=== PATIENT | male | born 1990 | race Caucasian/White ===

== ENCOUNTER 2017-05-11 21:01 | Emergency (ER) | payer MEDICAID ==
[~2017-05-11] VITALS: Ht 185.4 cm; Wt 136.9 kg
[~2017-05-11 21:01] MED LIST: AMOX/K CLAV875 M1 PO; AMOXICILLIN500 MG OR; AMOXICILLIN500 MG PO; AMOXICILLIN875 MG PO; BACTRIM DS1 TAB OR; BACTROBAN21 EX; BENZONATATE200 MG PO; BLEPH-1010 % OD; CIPROFLOXACN500 MG PO; CLARITIN10 MG PO; FLONASE NASAL50 MCG; FLUZONE SPLT1 M1 IM; KLONOPIN1 MG PO; LORAZEPAM0.5 MG PO; METRONIDAZOL500 MG PO; MUCINEX600 MG PO; NAPROSYN500 MG OR; NO HOME MEDS; PROAIR HFA IN; ULTRAM50 M1 PO; ZITHROMAX250 MG OR; ZOFRAN ODT4 MG PO; ZOFRAN ODT8 MG OR
[2017-05-11 21:33] LABS: HEMATOCRIT 43.8 % (39.0-50.0); HEMOGLOBIN 14.8 g/dl (14.0-18.0); IMMATURE GRANULOCYTES 0.3 % (0.0-1.0); MEAN CELL VOLUME 82.5 fL CALC (80.0-100.0); MEAN CORPUSCULAR HGB 27.9 pG CALC (26.0-32.0); MEAN CORPUSCULAR HGB CONC 33.8 g/L CALC (32.0-36.0); RED BLOOD COUNT 5.31 mill/uL (4.70-6.10); RED CELL DISTRI WIDTH 12.6 % (11.5-15.5)
[2017-05-11 21:57] LABS: ALBUMIN 4.9 g/dL (3.2-5.0); ALKALINE PHOSPHATASE 106 u/l (38-126); AMYLASE 126 u/l (30-110); ANION GAP 20 (6-22 (CALC)); BILIRUBIN, TOTAL 0.7 mg/dL (0.0-1.4); BUN 16 mg/dL (9-20); BUN/CREATININE RATIO 15 (12-20 (CALC)); CALCIUM 10.7 mg/dL (8.4-10.2); CARBON DIOXIDE 22 mmol/l (22-30); CHLORIDE 106 mmol/l (95-108); CREATININE 1.1 mg/dL (0.7-1.3); GFR > 60 ML/MIN (>=60 (CALC)); GFR FOR AFR.AMER. > 60 ML/MIN (>=60 (CALC)); GLUCOSE 106 mg/dL (75-110); LIPASE 66 u/l (23-300); POTASSIUM 4.3 mmol/l (3.5-5.1); SGOT/AST 36 u/l (17-59); SGPT/ALT 55 u/l (21-72); SODIUM 143 mmol/l (137-146); TOTAL PROTEIN 7.3 g/dL (6.3-8.2)
[2017-05-11 22:01] LABS: URINE BILIRUBIN - DIPSTICK NEGATIVE (NEGATIVE); URINE BLOOD DIPSTICK NEGATIVE (NEGATIVE); URINE CLARITY CLEAR; URINE COLOR DK. YELLOW; URINE GLUCOSE - DIPSTICK NEGATIVE (NEGATIVE); URINE KETONE NEGATIVE (NEGATIVE); URINE LEUK ESTERASE NEGATIVE (NEGATIVE); URINE NITRITE - DIPSTICK NEGATIVE (Negative); URINE PH 5.5 (4.5-8.0); URINE PROTEIN - DIPSTICK NEGATIVE (NEG-TRACE); URINE SPECIFIC GRAVITY 1.025
[2017-05-11] MEDS ORDERED: PREVACID30 M3 PO (22:39)
[2017-05-11] MEDS ORDERED: ZOFRAN4 MG PO (22:40)
[2017-05-11 22:53] VITALS: BP 127/74
== END 2017-05-11 22:54 | disposition home or self-care (01) | DRG 392 ==
LOC: ED 21:01
PROVIDERS: Emergency Medicine
DX: K29.70 Gastritis, unspecified, without bleeding (principal); R10.30 Lower abdominal pain, unspecified; R11.2 Nausea with vomiting, unspecified

== ENCOUNTER 2017-10-31 11:15 | Emergency (ER) | payer MEDICAID ==
[~2017-10-31] VITALS: Ht 185.4 cm; Wt 100.0 kg
[~2017-10-31 11:15] MED LIST changes: +PREVACID30 M3 PO; +ZOFRAN4 MG PO
[2017-10-31 11:49] LABS: HEMATOCRIT 44.3 % (39.0-50.0); HEMOGLOBIN 14.9 g/dl (14.0-18.0); IMMATURE GRANULOCYTES 0.6 % (0.0-5.0); MEAN CELL VOLUME 83.4 fL CALC (80.0-100.0); MEAN CORPUSCULAR HGB 28.1 pG CALC (26.0-32.0); MEAN CORPUSCULAR HGB CONC 33.6 g/L CALC (32.0-36.0); NEUT# 3.47 thou/uL (1.82-7.42); RED BLOOD COUNT 5.31 mill/uL (4.70-6.10); RED CELL DISTRI WIDTH 12.7 % (11.5-15.5)
[2017-10-31] MEDS ORDERED: PREDNISONE10 MG PO (11:59)
[2017-10-31 12:04] VITALS: BP 133/86
== END 2017-10-31 12:05 | disposition home or self-care (01) ==
LOC: ED 11:15
PROVIDERS: Family Medicine
DX: J98.01 Acute bronchospasm (principal); R06.02 Shortness of breath; R05 Cough

== ENCOUNTER 2018-10-23 20:44 | Emergency (ER) | payer SELFPAY ==
[~2018-10-23] VITALS: Ht 185.4 cm; Wt 109.1 kg
[~2018-10-23 20:44] MED LIST changes: +PREDNISONE10 MG PO
[2018-10-23] MEDS ORDERED: TRAMADOL HCL50 MG PO (21:02)
[2018-10-23] MEDS ORDERED: AMOXICILLIN500 MG PO (21:02)
[2018-10-23 21:14] VITALS: BP 135/75
== END 2018-10-23 21:14 | disposition home or self-care (01) | DRG 159 ==
LOC: ED 20:44
DX: K04.7 Periapical abscess without sinus (principal); K08.89 Other specified disorders of teeth and supporting structures

== ENCOUNTER 2019-01-07 06:10 | Emergency (ER) | payer SELFPAY ==
[~2019-01-07] VITALS: Ht 185.4 cm; Wt 114.8 kg
[~2019-01-07 06:10] MED LIST changes: +TRAMADOL HCL50 MG PO
[2019-01-07 06:47] VITALS: BP 134/84
[2019-01-07] MEDS ORDERED: AMOXICILLIN500 MG PO (06:50)
[2019-01-07] MEDS ORDERED: LORTAB 1010 MG PO (06:50)
== END 2019-01-07 06:59 | disposition home or self-care (01) | DRG 159 ==
LOC: ED 06:10
DX: K04.7 Periapical abscess without sinus (principal)

== ENCOUNTER 2019-02-04 10:27 | Emergency (ER) | payer MEDICAID ==
[~2019-02-04] VITALS: Ht 185.4 cm; Wt 113.0 kg
[~2019-02-04 10:27] MED LIST changes: +LORTAB 1010 MG PO
[2019-02-04] MEDS ORDERED: KEFLEX500 M1 PO (10:44)
[2019-02-04 11:09] VITALS: BP 138/62
== END 2019-02-04 11:14 | disposition home or self-care (01) | DRG 603 ==
LOC: ED 10:27
DX: L03.115 Cellulitis of right lower limb (principal); F41.9 Anxiety disorder, unspecified

== ENCOUNTER 2019-05-06 20:09 | Emergency (ER) | payer SELFPAY ==
[~2019-05-06 20:09] MED LIST changes: +KEFLEX500 M1 PO
[2019-05-06 20:20] VITALS: BP 139/84
[2019-05-06] MEDS ORDERED: ALLEGRA-D 2424 HOUR PO (20:31)
== END 2019-05-06 20:38 | disposition home or self-care (01) | DRG 156 ==
LOC: ED 20:09
DX: H69.82 Other specified disorders of Eustachian tube, left ear (principal)

== ENCOUNTER 2020-03-24 21:09 | Emergency (ER) | payer MEDICAID ==
[~2020-03-24] VITALS: Ht 185.4 cm; Wt 118.2 kg
[~2020-03-24 21:09] MED LIST changes: +ALLEGRA-D 2424 HOUR PO
[2020-03-24] MEDS ORDERED: LEXAPRO10 MG PO (22:08)
[2020-03-24 22:36] LABS: HEMATOCRIT 43.7 % (39.0-50.0); HEMOGLOBIN 14.3 g/dl (14.0-18.0); IMMATURE GRANULOCYTES 0.4 % (0.0-5.0); MEAN CELL VOLUME 84.7 fL CALC (80.0-100.0); MEAN CORPUSCULAR HGB 27.7 pG CALC (26.0-32.0); MEAN CORPUSCULAR HGB CONC 32.7 g/dL CAL (32.0-36.0); NEUT# 5.19 thou/uL (1.82-7.42); RED BLOOD COUNT 5.16 mill/uL (4.70-6.10); RED CELL DISTRI WIDTH 12.8 % (11.5-15.5); URINE BILIRUBIN - DIPSTICK NEGATIVE (NEGATIVE); URINE BLOOD DIPSTICK NEGATIVE (NEGATIVE); URINE COLOR YELLOW; URINE GLUCOSE - DIPSTICK NEGATIVE (NEGATIVE); URINE KETONE NEGATIVE (NEGATIVE); URINE LEUK ESTERASE NEGATIVE (NEGATIVE); URINE NITRITE - DIPSTICK NEGATIVE (Negative); URINE PH 5.5 (4.5-8.0); URINE PROTEIN - DIPSTICK NEGATIVE (NEG-TRACE); URINE SPECIFIC GRAVITY >=1.030; URINE UROBILINOGEN - DIPSTICK 0.2 E.U./dL (0.2)
[2020-03-24 23:07] LABS: ALBUMIN 4.7 g/dL (3.2-5.0); ALKALINE PHOSPHATASE 88 u/l (38-126); AMYLASE 60 u/l (30-110); BILIRUBIN, TOTAL 0.8 mg/dL (0.0-1.4); BUN 17 mg/dL (9-20); BUN/CREATININE RATIO 15 (12-20 (CALC)); CHLORIDE 102 mmol/l (95-108); CREATININE 1.1 mg/dL (0.7-1.3); GFR > 60 ML/MIN (>=60 (CALC)); GFR FOR AFR.AMER. > 60 ML/MIN (>=60 (CALC)); LIPASE 117 u/l (23-300); POTASSIUM 4.1 mmol/l (3.5-5.1); SGOT/AST 49 u/l (17-59); SODIUM 138 mmol/l (137-146); TOTAL PROTEIN 7.6 g/dL (6.3-8.2)
[2020-03-24 23:10] LABS: ANION GAP 13 (6-22 (CALC)); CARBON DIOXIDE 27 mmol/l (22-30)
[2020-03-24] MEDS ORDERED: MIRALAX17 GM PO (23:27)
[2020-03-24] MEDS ORDERED: MAGNESIUM296 ML/BTL PO (23:27)
[2020-03-25 00:05] VITALS: BP 111/57
== END 2020-03-25 00:05 | disposition home or self-care (01) ==
LOC: ED 21:09
PROVIDERS: Family Medicine
DX: K59.00 Constipation, unspecified (principal); F41.9 Anxiety disorder, unspecified

== ENCOUNTER 2022-01-18 22:07 | Emergency (ER) | payer MEDICAID ==
[~2022-01-18] VITALS: Ht 185.4 cm; Wt 113.0 kg
[~2022-01-18 22:07] MED LIST changes: +LEXAPRO10 MG PO; +MAGNESIUM296 ML/BTL PO; +MIRALAX17 GM PO
[2022-01-18 22:26] VITALS: BP 127/82
[2022-01-18 22:30] VITALS: BP 139/85
[2022-01-18 23:01] VITALS: BP 121/76
[2022-01-18 23:02] LABS: HEMATOCRIT 42.3 % (39.0-50.0); HEMOGLOBIN 14.1 g/dl (14.0-18.0); IMMATURE GRANULOCYTES 0.2 % (0.0-5.0); MEAN CELL VOLUME 84.9 fL CALC (80.0-100.0); MEAN CORPUSCULAR HGB 28.3 pG CALC (26.0-32.0); MEAN CORPUSCULAR HGB CONC 33.3 g/dL CAL (32.0-36.0); NEUT# 5.78 thou/uL (1.82-7.42); RED BLOOD COUNT 4.98 mill/uL (4.70-6.10); RED CELL DISTRI WIDTH 12.6 % (11.5-15.5)
[2022-01-18 23:12] LABS: ALBUMIN 4.7 g/dL (3.2-5.0); ALKALINE PHOSPHATASE 78 u/l (38-126); ANION GAP 12 (6-22 (CALC)); BILIRUBIN, TOTAL 0.5 mg/dL (0.0-1.4); BUN 14 mg/dL (9-20); BUN/CREATININE RATIO 12 (12-20 (CALC)); CARBON DIOXIDE 29 mmol/l (22-30); CHLORIDE 102 mmol/l (95-108); CREATININE 1.2 mg/dL (0.7-1.3); GFR FOR AFR.AMER. > 60 ML/MIN (>=60 (CALC)); GFR OTHER RACES > 60 ML/MIN (>=60 (CALC)); SGOT/AST 39 u/l (17-59); SODIUM 139 mmol/l (137-146); TOTAL PROTEIN 7.5 g/dL (6.3-8.2)
[2022-01-18 23:24] LABS: MYOGLOBIN 35 ng/mL (0 - 121)
[2022-01-18 23:31] VITALS: BP 120/77
[2022-01-19 00:01] VITALS: BP 118/76
[2022-01-19] MEDS ORDERED: LEXAPRO10 MG PO (00:06)
[2022-01-19 00:12] VITALS: BP 118/76
== END 2022-01-19 00:31 | disposition home or self-care (01) ==
LOC: ED 22:07
PROVIDERS: Emergency Medicine
DX: F41.9 Anxiety disorder, unspecified (principal)